=== PATIENT | female | born 1980 | race Caucasian/White ===

== ENCOUNTER 2020-01-11 12:39 | Emergency (ER) | payer OTHER, SELFPAY ==
[2020-01-11] VITALS (17 sets, daily range): BP systolic 99–133; BP diastolic 55–70; PULSE 69–89; RESP 4–20; TEMP 36.6; O2SAT 94–100
--- NOTE | ~2020-01-11 | CT_ITS ---
EXAMINATION: CT BRAIN W/O DATE: 01/11/2020 13:09 INDICATION: Head injury. Nausea, vomiting. Headache. TECHNIQUE: Computed tomography (CT) of the head was performed without intravenous contrast. The dose- length product was 605.33 mGy-cm. COMPARISON: No prior studies for comparison. FINDINGS: Normal brain parenchymal volume for age. Normal henson-white differentiation. No acute intrac ranial hemorrhage, infarction, mass or mass effect. No ventriculomegaly or midline shift. Midline sagittal images demonstrate a normal corpus callosum, c raniovertebral junction and sella turcica. Basilar cisterns are patent. There is mild mucosal thickening of the sphenoid sinus. No depressed skull fracture. IMPRESSION: 1. No acute intracranial abnormality. Reviewed, dictated and finalized at location A.
--- NOTE | 2020-01-11 12:59 | ED.NAVMDI ---
HPI - Nausea/Vomiting/Diarrhea General Chief complaint: Nausea/Vomiting/Diarrhea <Sola Maynard PA-C - Last Filed: 01/11/20 15:20> Stated complaint: n/v/d <RUTH Burch Last Filed: 01/11/20 15:20> Time Seen by Provider: 01/11/20 12:46 <RUTH Burch Last Filed: 01/11/20 15:20> Source: patient <RUTH Burch Last Filed: 01/11/20 15:20> Mode of arrival: ambulatory <RUTH Burch Last Filed: 01/11/20 15:20> Limitations: no limitations <RUTH Burch Last Filed: 01/11/20 15:20> History of Present Illness HPI Narrative: This is a 39 year old female that presents to the ER for N/V/D x 3 days. Reports she had a fall on Monday. Reports she slipped and fell down about 10 steps. She is unsure if she hit her head. Denies loss of consciousness. Reports since she has had intermittent headaches and started vomiting on Monday. Reports over the last couple of days she has had some loose stools as well. Reports some lower abdominal pain. Denies fever, chest pain, shortness of breath, recent antibiotic use, sick contacts, vision changes, numbness or weakness. <RUTH Burch Last Filed: 01/11/20 15:20> Related Data Allergies/Adverse reactions: Allergies Allergy/AdvReac Type Severity Reaction Status Date / Time STEROIDS AdvReac Unknown Uncoded 09/27/16 14:02 <RUTH Burch Last Filed: 01/11/20 15:20> Review of Systems Review of Systems: Narrative: CONSTITUTIONAL: Denies fever EYES: Denies visual changes CARDIOVASCULAR: Denies chest pain RESPIRATORY: Denies dyspnea. GASTROINTESTINAL: Reports abdominal pain, nausea, vomiting, and diarrhea. GENITOURINARY: Denies dysuria or hematuria. MUSCULOSKELETAL: Reports myalgia. Denies back pain, joint pain NEUROLOGIC: Reports headache. Denies numbness, or weakness. <Sola Maynard PA-C - Last Filed: 01/11/20 15:20> All systems reviewed & are unremarkable except as noted in HPI and below <Sola Maynard PA-C - Last Filed: 01/11/20 15:20> PMFSH Past Medical History Medical History: Medical History (Updated 01/11/20 @ 15:20 by Sola Maynard PA-C) History of irritable bowel syndrome <Sola Maynard PA-C - Last Filed: 01/11/20 15:20> Surgical History Surgical History: Surgical History (Updated 01/11/20 @ 13:04 by Sola Maynard PA-C) History of hysterectomy <Sola Maynard PA-C - Last Filed: 01/11/20 15:20> Family History Family History: Family History (Updated 04/08/16 @ 23:21 by DOCTOR UNKNOWN) Mother Patient's mother is in good health Father Patient's father is in good health Sibling Patient's sister is in good health Grandparent Diabetes mellitus <Sola Maynard PA-C - Last Filed: 01/11/20 15:20> Social History Social History: Social History Smoking status: Never smoker Smoking end date: 09/11/04 Alcohol intake: current Gender identity (if verbalized by the patient): Female <Sola Maynard PA-C - Last Filed: 01/11/20 15:20> Exam Narrative: Exam Narrative: GENERAL: Well-appearing, well-nourished, and in no acute distress. HEAD: Normocephalic, atraumatic. EYES: PERRLA and EOMI. ENT: Nares clear, no rhinorrhea or epistaxis. Mucous membranes moist. Oropharynx without tonsillar hypertrophy exudate or other lesions. Bilateral TMs pearly henson non-bulging NECK: Supple. No adenopathy or masses. No midline spinal tenderness CHEST: Clear to auscultation. No respiratory distress. No wheezes rales or rhonchi HEART: Regular rate and rhythm. No murmur heard. Normal peripheral pulses. ABDOMEN: Soft, nondistended, normal active bowel sounds. Mild tenderness to palpation of the epigastrium, without guarding BACK: No midline spinal tenderness EXTREMITIES: Normal range of motion. No edema or obvious deformity. SKIN: Warm, dry, no rash. NEURO: No focal deficits. Alert and oriented x3. Cranial nerves II through XII gross
--- NOTE | 2020-01-11 13:00 | PC.NURSE ---
Pt states she has lower abd pain, AMBROSE, nausea, vomiting,and loose stools x 3 days. Pt is A&Ox4. Pt states she ate fast food but no one else got sick. Pt states 4 days ago she fell down 10 stairs and does not think she hit her head. Pt states she has felt fatigued. Pt abd soft, tender and non distended. Pt BSx4. Pt appears in NAD. Pt has call light in reach
[2020-01-11] MEDS: ONDANSETRON INJ 4 MG/2 ML VIAL IV PUSH (13:12)
[2020-01-11] MEDS: SODIUM CHLORIDE 0.9% IV 1,000 ML 999 ML IV CONT (13:12)
[2020-01-11 13:36] LABS: Basophils Percent Auto 0.2 % (0.2-1.2); Hematocrit 39.4 % (37.0-47.0); Hemoglobin 13.5 g/dL (12.0-15.0); Immature Granulocyte Absolute 0.04 K/mm3 (0.00-0.031); Immature Granulocyte Percent A 0.4 % (0-0.5); Lymphocytes Absolute Auto 0.98 K/mm3 (0.9-3.2); Lymphocytes Percent Auto 10.2 % (18.3-44.2); Mean Corpuscular HGB Conc 34.3 g/dl (32-36); Mean Corpuscular Hemoglobin 30.7 pg (26-34); Mean Corpuscular Volume 89.5 fl (80-100); Mean Platelet Volume 10.6 fl (7.4-10.4); Monocytes Absolute Auto 0.6 K/mm3 (0.1-0.6); Monocytes Percent Auto 5.9 % (2.6-8.5); Neutrophils Percent Auto 83.3 % (45.5-73.1); Platelet Count Result 212 k/mm3 (150-375); Red Cell Distribution Width 11.6 % (11.5-14.5); White Blood Count 9.6 K/mm3 (4.5-10.0)
[2020-01-11 13:49] LABS: Alanine Aminotransferase 24 U/L (4-35); Albumin Level 4.6 g/dL (3.5-5.1); Alkaline Phosphatase 77 U/L (38-126); Aspartate Amino Transferase 26 U/L (14-36); Bilirubin,Total 0.5 mg/dL (0.2-1.3); Blood Urea Nitrogen 17 mg/dL (7-17); Calcium 8.8 mg/dL (8.4-10.2); Carbon Dioxide 22 mmol/L (22-30); Chloride 105 mmol/L (98-107); Estimated CRCL calculation 111 ml/min; Estimated Glomerular Filt Rate > 60; Glucose 100 mg/dL (65-105); Lipase 36 U/L (23-300); Potassium 3.5 mmol/L (3.4-5.0); Sodium 137 mmol/L (137-145)
[2020-01-11] MEDS: KETOROLAC 15 MG/ML VIAL (*BKC) IV PUSH (14:38)
[2020-01-11] MEDS: FAMOTIDINE 20 MG/2 ML VIAL IV PUSH (14:38)
[2020-01-11] MEDS: SODIUM CHLORIDE 0.9% IV 500 ML 999 ML IV CONT (14:40)
[2020-01-11 14:49] LABS: Add Urine Microscopic? YES; Appearance Urine Cloudy (Clear); Bacteria Urine Trace /hpf; Bilirubin Urine Negative (Negative); Blood Urine 1+ (Negative); Color Urine Yellow (Yellow); Glucose Urine UA Negative (Negative); Ketones Urine 2+ mg/dL (Negative); Leukocyte Esterase Ur Negative LEU/UL (Negative); Mucus Urine Heavy /lpf; Nitrate Urine Negative (Negative); Protein Urine 2+ mg/dL (Negative); RBC Urine 0-2 /hpf (0-2); Squamous Epithelial Cell Urine Many /hpf (Few); Urobilinogen Urine Negative mg/dL (<2.0)
[2020-01-11 14:50] LABS: Specific Grav Ur 1.034 (1.001-1.035)
--- NOTE | 2020-01-11 15:11 | PC.NURSE ---
Pt walked to and from bathroom and felt stronger than originally when she walked in her. Pt aware of POC
== END 2020-01-11 15:44 | disposition home or self-care (01) ==
PROVIDERS: Physician Assistant; Emergency Provider General Practice; PCP Family Medicine
DX: K52.9 Noninfective gastroenteritis and colitis, unspecified (principal); S09.90XA Unspecified injury of head, initial encounter; K58.9 Irritable bowel syndrome, unspecified; W10.9XXA Fall (on) (from) unspecified stairs and steps, initial encounter
CPT/HCPCS: 36415; 70450; 80053; 81001; 83690; 85025; 96361; 96365; 96375; 99284; J0131; J1885; J2405; J7030; J7040

== ENCOUNTER 2020-02-04 03:47 | Emergency (ER) | payer OTHER, SELFPAY ==
[2020-02-04 03:51] VITALS: BP 100/73; PULSE 93; RESP 18; TEMP 36.3; O2SAT 100
--- NOTE | 2020-02-04 04:08 | ED.NAVMDI ---
HPI - Nausea/Vomiting/Diarrhea General Chief complaint: Nausea/Vomiting/Diarrhea Stated complaint: dry heaving Time Seen by Provider: 02/04/20 03:51 History of Present Illness HPI Narrative: Dry heaving for the past 12 hours. Started after mowing the lawn. Associated with lower abdominal ain. Additionally she feels short of breath and is having carpal spasms. She has had this happen once before. Work-up at that tie was negative. She has a h/o anxiety, which she admits is likely playing a role. She also has IBS. Related Data Home Medications Medication Instructions Recorded Confirmed citalopram mg 02/04/20 02/04/20 Allergies Allergy/AdvReac Type Severity Reaction Status Date / Time STEROIDS AdvReac Unknown Unknown Uncoded 02/04/20 03:50 Review of Systems Review of Systems: All systems reviewed & are unremarkable except as noted in HPI and below Constitutional: Constitutional: Denies fever(s) Cardiovascular: Cardiovascular: Denies chest pain Respiratory: Respiratory: Reports dyspnea Gastrointestinal: Gastrointestinal: Reports abdominal pain Genitourinary: Genitourinary: Denies hematuria and Denies dysuria [facility] Past Medical History Medical History History of irritable bowel syndrome Surgical History Surgical History History of hysterectomy Family History Family History Mother Patient's mother is in good health Father Patient's father is in good health Sibling Patient's sister is in good health Grandparent Diabetes mellitus Social History Social History Smoking status: Never smoker Smoking end date: 09/11/04 Alcohol intake: current Gender identity (if verbalized by the patient): Female Exam Const: General: healthy appearing and alert Orientation/consciousness: patient oriented x3 Other: Mild distress HENMT: Mouth: Yes dry mucous membranes Resp: Effort & Inspection: normal respiratory effort and tachypneic Cardio: Rate: regular rate Rhythm: regular rhythm GI: GI Palp: Yes Soft to palpation and No Tenderness to palpation present (GI) Skin: General skin exam: normal color Neuro: General: patient oriented x3, moves all extremities and CN's II-XI intact bilaterally Speech: normal speech Extrem: General: normal to inspection Psych: Affect: Anxious affect present Course Vital Signs Vital signs: Vital Signs Temperature 36.3 C L 02/04/20 03:51 Pulse Rate 93 02/04/20 03:51 Respiratory Rate 18 02/04/20 03:51 Blood Pressure 100/73 02/04/20 03:51 Pulse Oximetry 100 02/04/20 03:51 Temperature 36.3 C L 02/04/20 03:51 Pulse Rate 81 02/04/20 06:16 Respiratory Rate 18 02/04/20 06:16 Blood Pressure 101/48 L 02/04/20 06:16 Pulse Oximetry 98 02/04/20 06:16 MDM - Nausea/Vomiting/Diarrhea MDM Narrative Medical decision making narrative: Symptoms quickly resolved with treatment. Blood sugar elevated. Possible stress induced. Improved on recheck. Differential Diagnosis Differential diagnosis: Likely dehydration and other (IBS, Anxiety, cyclic vomiting) Medical Records Attestation: I reviewed the patient's medical records. Lab Data Attestation: I reviewed the patient's lab results. Result diagrams: 02/04/20 04:04 02/04/20 04:04 Labs: Lab Results 02/04/20 02/04/20 02/04/20 Range/Units 04:04 04:04 06:28 WBC 14.0 H (4.5-10.0) K/mm3 RBC 4.64 (4.2-5.4) M/mm3 Hgb 14.3 (12.0-15.0) g/dL Hct 41.6 (37.0-47.0) % MCV 89.7 (80-100) fl MCH 30.8 (26-34) pg MCHC 34.4 (32-36) g/dl RDW 11.9 (11.5-14.5) % Plt Count 295 (150-375) k/mm3 MPV 10.0 (7.4-10.4) fl Immature Gran % (Auto) 0.5 (0-0.5) % Neut % (Auto) 86.7 H (45.5-73.1) % Lymph % (Auto
[2020-02-04 04:10] LABS: Basophils Percent Auto 0.1 % (0.2-1.2); Hematocrit 41.6 % (37.0-47.0); Hemoglobin 14.3 g/dL (12.0-15.0); Immature Granulocyte Absolute 0.07 K/mm3 (0.00-0.031); Immature Granulocyte Percent A 0.5 % (0-0.5); Lymphocytes Absolute Auto 1.23 K/mm3 (0.9-3.2); Lymphocytes Percent Auto 8.8 % (18.3-44.2); Mean Corpuscular HGB Conc 34.4 g/dl (32-36); Mean Corpuscular Hemoglobin 30.8 pg (26-34); Mean Corpuscular Volume 89.7 fl (80-100); Monocytes Absolute Auto 0.6 K/mm3 (0.1-0.6); Monocytes Percent Auto 3.9 % (2.6-8.5); Neutrophils Absolute Auto 12.2 K/mm3 (1.3-6.7); Neutrophils Percent Auto 86.7 % (45.5-73.1); Platelet Count Result 295 k/mm3 (150-375); Red Blood Count 4.64 M/mm3 (4.2-5.4); Red Cell Distribution Width 11.9 % (11.5-14.5)
[2020-02-04] MEDS: METOCLOPRAMIDE HCL INJ 10 MG/2 ML VIAL IV PUSH (04:17)
[2020-02-04] MEDS: SODIUM CHLORIDE 0.9% IV 1,000 ML 999 ML IV CONT (04:17)
[2020-02-04] MEDS: LORAZEPAM INJ 2 MG/ML VIAL 1 MG IV PUSH (04:17)
[2020-02-04] MEDS: HALOPERIDOL LACTATE 5 MG/ML VIAL IV PUSH (04:17)
[2020-02-04 04:23] LABS: Albumin Level 4.7 g/dL (3.5-5.1); Alkaline Phosphatase 96 U/L (38-126); Aspartate Amino Transferase 33 U/L (14-36); Bilirubin,Total 0.5 mg/dL (0.2-1.3); Blood Urea Nitrogen 9 mg/dL (7-17); Calcium 9.5 mg/dL (8.4-10.2); Carbon Dioxide 22 mmol/L (22-30); Chloride 106 mmol/L (98-107); Estimated CRCL calculation 96 ml/min; Estimated Glomerular Filt Rate > 60; Glucose 186 mg/dL (65-105); Lipase 90 U/L (23-300); Potassium 3.9 mmol/L (3.4-5.0); Sodium 139 mmol/L (137-145)
--- NOTE | 2020-02-04 04:28 | PC.NURSE ---
per pt request pt placed on o2 via nc 1.0L
[2020-02-04 04:29] LABS: Alanine Aminotransferase 28 U/L (4-35)
[2020-02-04 04:42] VITALS: BP 98/62; PULSE 72; RESP 16; O2SAT 98
[2020-02-04 05:46] VITALS: BP 98/69; PULSE 68; RESP 16; O2SAT 99
[2020-02-04 06:16] VITALS: BP 101/48; PULSE 81; RESP 18; O2SAT 98
--- NOTE | 2020-02-04 06:21 | PC.NURSE ---
Called lab to add on glucose.
[2020-02-04 06:30] LABS: Glucose Point of Care 138 (65-105)
== END 2020-02-04 07:17 | disposition home or self-care (01) ==
PROVIDERS: Emergency Provider Emergency Medicine; PCP Family Medicine
DX: F41.9 Anxiety disorder, unspecified (principal); R11.2 Nausea with vomiting, unspecified; R73.9 Hyperglycemia, unspecified; K58.9 Irritable bowel syndrome, unspecified
CPT/HCPCS: 36415; 80053; 83690; 85025; 96374; 96375; 99284; J1630; J2060; J2765; J7030

== ENCOUNTER → 2020-05-06 15:23 | Outpatient (CLI) | payer OTHER, SELFPAY ==
--- NOTE | ~2020-05-06 | MM_ITS ---
EXAMINATION: MM screening abad BI w juana HISTORY: Screening TECHNIQUE: Craniocaudal and mediolateral oblique 3-D tomosynthesis images were obtained and synthetic 2-D images were generated. CAD analysis was submitted and interpreted. COMPARISON: No prior mammogram is available for comparison at this institution. BREAST PARENCHYMAL COMPOSITION: The breasts are heterogeneously dense, which may obscure small masses . FINDINGS: There are focal asymmetries in the subareolar location of the left breast on CC view, not c onfirmed on MLO view. No mammographic evidence for malignancy in the right breast. IMPRESSION: 1. Left breast asymmetries seen on CC view only. 2. Additional mammographic views and possible breast ultrasound are recommended. BI-RADS Category 0: Incomplete: Needs additional imaging evaluation. Reviewed, dictated and finalized at location A. IMPRESSION: 1. Left breast asymmetries seen on CC view only. 2. Additional mammographic views and possible breast ultrasound are recommended . BI-RADS Category 0: Incomplete: Needs additional imaging evaluation.
== END ==
PROVIDERS: Visit Provider Obstetrics & Gynecology
DX: Z12.31 Encounter for screening mammogram for malignant neoplasm of breast (principal); R92.8 Other abnormal and inconclusive findings on diagnostic imaging of breast
CPT/HCPCS: 77063; 77067

== ENCOUNTER → 2020-05-19 08:54 | Outpatient (CLI) | payer OTHER, SELFPAY ==
--- NOTE | ~2020-05-19 | MMUS_ITS ---
EXAMINATION: MM diagnostic mammo unilat LT, US breast LT complete HISTORY: Follow-up left breast asymmetries TECHNIQUE: Additional 3-D tomosynthesis images of the left breast were performed and synthetic 2-D im ages were generated. CAD analysis was submitted and interpreted. High resolution left breast ultrasou nd was performed. COMPARISON: 05/06/2020 BREAST PARENCHYMAL COMPOSITION: The breasts are heterogenously dense, which may obscure small masses FINDINGS: MAMMOGRAPHIC FINDINGS: There are no suspicious masses, calcifications or architectural distortion in the left breast to sugg est malignancy. ULTRASOUND: Left breast ultrasound: At 10:00, 5 cm from the nipple, there is a 4 mm cyst. No suspicious masses to suggest malignancy. IMPRESSION: 1. No mammographic or sonographic evidence for breast. 2. Routine yearly screening mammogram and regular clinical breast examination are recommended. BI-RADS Category 2: Benign finding(s). Reviewed, dictated and finalized at location A. IMPRESSION: 1. No mammographic or sonographic evidence for breast. 2. Routine yearly screening mammogram and regular clinical breast examination a re recommended. BI-RADS Category 2: Benign finding(s).
== END ==
PROVIDERS: Visit Provider Obstetrics & Gynecology
DX: R92.8 Other abnormal and inconclusive findings on diagnostic imaging of breast (principal)
CPT/HCPCS: 76641; 77065

== ENCOUNTER 2021-04-28 15:45 | Emergency (ER) | payer OTHER, SELFPAY ==
[2021-04-28 15:49] VITALS: BP 117/51; PULSE 64; RESP 24; TEMP 35; O2SAT 100
[2021-04-28 16:10] LABS: Basophils Percent Auto 0.2 % (0.2-1.2); Hematocrit 40.8 % (37.0-47.0); Hemoglobin 13.7 g/dL (12.0-15.0); Immature Granulocyte Absolute 0.06 K/mm3 (0.00-0.031); Immature Granulocyte Percent A 0.4 % (0-0.5); Lymphocytes Absolute Auto 1.36 K/mm3 (0.9-3.2); Lymphocytes Percent Auto 9.1 % (18.3-44.2); Mean Corpuscular HGB Conc 33.6 g/dl (32-36); Mean Corpuscular Hemoglobin 30.6 pg (26-34); Mean Corpuscular Volume 91.3 fl (80-100); Mean Platelet Volume 10.2 fl (7.4-10.4); Monocytes Absolute Auto 0.8 K/mm3 (0.1-0.6); Monocytes Percent Auto 5.1 % (2.6-8.5); Neutrophils Absolute Auto 12.7 K/mm3 (1.3-6.7); Neutrophils Percent Auto 85.2 % (45.5-73.1); Platelet Count Result 271 k/mm3 (150-375); Red Blood Count 4.47 M/mm3 (4.2-5.4); White Blood Count 14.9 K/mm3 (4.5-10.0)
[2021-04-28 16:42] LABS: Alanine Aminotransferase 30 U/L (4-35); Albumin Level 4.6 g/dL (3.5-5.1); Alkaline Phosphatase 102 U/L (38-126); Anion Gap 9 mmol/L (8-16); Aspartate Amino Transferase 32 U/L (14-36); Bilirubin,Total 0.6 mg/dL (0.2-1.3); Blood Urea Nitrogen 8 mg/dL (7-17); Calcium 9.5 mg/dL (8.4-10.2); Carbon Dioxide 21 mmol/L (22-30); Chloride 108 mmol/L (98-107); Estimated CRCL calculation 99 ml/min; Estimated Glomerular Filt Rate > 60; Glucose 162 mg/dL (65-110); Lipase 69 U/L (23-300); Sodium 138 mmol/L (137-145)
--- NOTE | 2021-04-28 16:46 | PC.NURSE ---
Pt amb to intake desk, pt states she is going to leave I will fell better at home . Pt remains alert & oriented x3 at this time. Pt states she will come back if continues to feel bad. Pt amb out of dept with nl steady gait.
== END 2021-04-29 04:48 | disposition left against medical advice (07) ==
PROVIDERS: Emergency Provider Emergency Medicine
DX: R10.9 Unspecified abdominal pain (principal)
CPT/HCPCS: 36415; 80053; 83690; 85025; 99199

== ENCOUNTER → 2021-05-10 15:02 | Outpatient (CLI) | payer OTHER, SELFPAY ==
--- NOTE | ~2021-05-10 | MM_ITS ---
EXAMINATION: MM screening abad BI w juana HISTORY: Screening TECHNIQUE: Craniocaudal and mediolateral oblique 3-D tomosynthesis images were obtained and synthetic 2-D images were generated. CAD analysis was submitted and interpreted. COMPARISON: 05/06/2020 BREAST PARENCHYMAL COMPOSITION: The breasts are heterogenously dense, which may obscure small masses. FINDINGS: There is no evidence of suspicious mass, calcification, or architectural distortion to sugg est malignancy in either breast. There has been no suspicious interval change. IMPRESSION: 1. No mammographic evidence of malignancy. 2. Recommend routine screening mammography in one year. BI-RADS Category 1: Negative Reviewed, dictated and finalized at location A.
== END ==
PROVIDERS: Visit Provider Obstetrics & Gynecology
DX: Z12.31 Encounter for screening mammogram for malignant neoplasm of breast (principal)
CPT/HCPCS: 77063; 77067

== ENCOUNTER → 2021-06-24 09:37 | Outpatient (CLI) | payer OTHER, SELFPAY ==
--- NOTE | ~2021-06-24 | XR_ITS ---
XR chest 2V DATE: 06/24/2021 10:00 INDICATION: Cough TECHNIQUE: 2 views COMPARISON: None FINDINGS: Normal heart size. No hilar or mediastinal enlargement. The lungs are clear of infiltrate o r consolidation. No pleural effusion or pulmonary vascular congestion or pneumothorax. IMPRESSION: Negative chest Reviewed, dictated and finalized at location B. IMPRESSION: Negative chest
== END ==
PROVIDERS: PCP Family Medicine; Visit Provider Family Medicine
DX: R05.9 Cough, unspecified (principal)
CPT/HCPCS: 71046

== ENCOUNTER 2021-07-20 08:32 | Outpatient (CLI) | payer OTHER, SELFPAY ==
--- NOTE | 2021-07-20 11:30 | NEURO_ITS ---
Impression: # Complains of left hand numbness. # Mild evolving left Carpal Tunnel Syndrome. # No ulnar neuropathy. # Normal needle/EMG exam. Nerve Conduction Studies Anti Sensory Summary Table Stim Site NR Peak (ms) P-T Amp (?V) Site1 Site2 Delta-P (ms) Dist (cm) Vinny (m/s) Left Median Anti Sensory (2-3nd Digit) Wrist 2.5 95.5 Wrist 2-3nd Digit 2.5 14.0 56 Wrist 2.5 72.2 Wrist 2-3nd Digit 2.5 14.0 56 Right Median Anti Sensory (2-3nd Digit) Wrist 2.5 79.5 Wrist 2-3nd Digit 2.5 14.0 56 Wrist 2.5 84.8 Wrist 2-3nd Digit 2.5 14.0 56 Left Radial Anti Sensory (Base 1st Digit) Wrist 2.1 20.9 Wrist Base 1st Digit 2.1 0.0 Right Radial Anti Sensory (Base 1st Digit) Wrist 2.2 27.6 Wrist Base 1st Digit 2.2 0.0 Left Ulnar Anti Sensory (5th Digit) Wrist 2.4 78.7 Wrist 5th Digit 2.4 14.0 58 Right Ulnar Anti Sensory (5th Digit) Wrist 2.2 88.2 Wrist 5th Digit 2.2 14.0 64 Motor Summary Table Stim Site NR Onset (ms) O-P Amp (mV) Site1 Site2 Delta-0 (ms) Dist (cm) Vinny (m/s) Left Median Motor (Abd Poll Brev) Wrist 3.8 3.2 Elbow Wrist 4.3 26.0 60 Elbow 8.1 2.1 Right Median Motor (Abd Poll Brev) Wrist 2.7 7.7 Elbow Wrist 4.3 26.0 60 Elbow 7.0 7.3 Left Ulnar Motor (Abd Dig Minimi) Wrist 2.7 7.4 A Elbow Wrist 4.6 28.0 61 A Elbow 7.3 6.6 Right Ulnar Motor (Abd Dig Minimi) Wrist 2.8 7.1 A Elbow Wrist 4.5 27.0 60 A Elbow 7.3 6.3 F Wave Studies NR F-Lat (ms) L-R F-Lat (ms) Left Median (Mrkrs) (Abd Poll Brev) 26.31 0.53 Right Median (Mrkrs) (Abd Poll Brev) 25.78 0.53 Left Ulnar (Mrkrs) (Abd Dig Min) 27.09 0.41 Right Ulnar (Mrkrs) (Abd Dig Min) 26.68 0.41 EMG Side Muscle Nerve Root Ins Act Fibs Amp Dur Recrt Comment Right 1stDorInt Ulnar C8-T1 Nml Nml Nml Nml Nml Right Ext Indicis Radial (Post Int) C7-8 Nml Nml Nml Nml Nml Right Ext Digitorum Radial (Post Int) C7-8 Nml Nml Nml Nml Nml Right BrachioRad Radial C5-6 Nml Nml Nml Nml Nml Right PronatorTeres Median C6-7 Nml Nml Nml Nml Nml Right Abd Poll Brev Median C8-T1 Nml Nml Nml Nml Nml Left 1stDorInt Ulnar C8-T1 Nml Nml Nml Nml Nml Left Ext Indicis Radial (Post Int) C7-8 Nml Nml Nml Nml Nml Left Ext Digitorum Radial (Post Int) C7-8 Nml Nml Nml Nml Nml Left BrachioRad Radial C5-6 Nml Nml Nml Nml Nml Left PronatorTeres Median C6-7 Nml Nml Nml Nml Nml Left Abd Poll Brev Median C8-T1 Nml Nml Nml Nml Nml Right ABD Dig Min Ulnar C8-T1 Nml Nml Nml Nml Nml Left ABD Dig Min Ulnar C8-T1 Nml Nml Nml Nml Nml MTDD
== END 2021-07-20 08:33 | disposition home or self-care (01) ==
PROVIDERS: PCP Family Medicine; Visit Provider Family Medicine
DX: R20.0 Anesthesia of skin (principal); R20.2 Paresthesia of skin; G56.02 Carpal tunnel syndrome, left upper limb
CPT/HCPCS: 95886; 95911

== ENCOUNTER 2022-01-31 09:00 | Outpatient (RCR) | payer OTHER, SELFPAY ==
--- NOTE | 2022-01-05 15:58 | OTOPEVAL ---
OCCUPATIONAL THERAPY INITIAL EVALUATION REPORT 01/05/22 Thank you for referring Kelsi Parker to [facility]– [place].? The patient is scheduled to be seen for therapy? 1-2x/week for 4 weeks. Please review, sign, date and return this plan of care MINNIE. I agree with and certify that the following plan of care is medically necessary. Referring Physician Date Referring Provider: Bruce Bajwa MD *OT Outpatient Evaluation Start: 01/05/22 14:29 Neurological History Hx Neurological Disorders No Significant History Cardiovascular History Hx Cardiac Disorders No Significant History Respiratory History Hx Respiratory Disorders No Significant History Musculoskeletal History Hx Other Musculoskeletal Disorders Yes: left cubital tunnel release, left 1st dorsal compartment release 11/2021 Endocrine History Hx Endocrine Disorders No Significant History Evaluation Information Problem Diagnosis pain and paresthesias s/p release of left 1st dorsal compartment Onset 11/09/21 Subjective Information Patient reports severe Query Text:As Reported By Patient/ hypersensitivity at the incision Family site of the 1st dorsal compartment. She reports being unable to wear a sleeve that touches this area. She also notes an area of numbness on the dorsum of the hand. She reports being unable to do any sort of heavier lifting - carrying a laundry basket, lifting a ortega, etc. She has progressed to being able to roll picker light items such as a coffee cup. Prior Level of Function Activity Level (Last 3 Months) Occupation Desk job, at a computer all day Hand Dominance Right Activity of Daily Living Ability Independent Cooking Yes Cleaning Yes Laundry Yes Shopping Yes Driving Yes Pain Assessment Timing of Pain Assessment Timing of Pain Assessment Assessment Pain Scale Pain Scale Used Numeric (1 - 10) Self Report Pain Assessment Left Wrist(s) Reported Pain Level 2 Pain Description Soreness Lowest Pain Intensity 2 Greatest Pain Intensity 8 Pain Aggravating Factors Exercise/Activity,Lifting Pain Score Pain Score 2: Self Report Interventions
--- NOTE | 2022-01-31 12:58 | OTOPEVAL ---
OCCUPATIONAL THERAPY RE-EVALUATION REPORT AND D/C SUMMARY 01/31/22 Kelsi participated in 8 outpatient OT sessions for residual left wrist pain and weakness following 1st dorsal compartment release on 11/09/21. Treatment consisted of ROM and strengthening as well as paraffin, ultrasound, and manual therapy techniques. She continues to have a palpable, tender nodule at the incision site and intermittent pains with ADL tasks. She reports that therapy has helped her regain strength and ROM, however she states she cannot live with this pain . Therapeutic intervention appeared to have slightly reduced the amount of sensitivity at the surgical site, but she continues to have flair ups of pain that are not improving. She has reached her maximal benefit with therapy at this time. Plan for her to return to MD for further suggestions. Thank you for referring Kelsi Parker to [facility]. Please review, sign, date and return this plan of care MINNIE. I agree with and certify that the following plan of care is medically necessary. Referring Physician Date Referring Provider: Bruce Bajwa MD Re-Evaluation Information Diagnosis pain and paresthesias s/p release of left 1st dorsal compartment Onset 11/09/21 Subjective Information Patient reports continued Query Text:As Reported By Patient/ hypersensitivity at the Family incision site of the 1st dorsal compartment. She reports improvements with ROM and strength, noting increased ability to lift and carry items with the left hand. She states she continues to have pain with various tasks, such as lifting her dog and some pinching tasks. She has been compliant with all materials. Pain Assessment Timing of Pain Assessment Timing of Pain Assessment Assessment Pain Scale Pain Scale Used Numeric (1 - 10) Self Report Pain Assessment Left Wrist(s) Reported Pain Level 1 Pain Description Dull,Soreness Lowest Pain Intensity 0 Greatest Pain Intensity 8 Pain Score Pain Score 1: Self Report Additional Pain Score Comments She reports pain does reach 0/10 with medication. She tends to consistently be at 1-2/10. She reports twinges of pain with ADLs that reaches 8/10. These numbers have remained the same since the start of care. Overall she is having less pain at rest. Interventions Used Interventions Used By Clinicians Education,Exercise,Paraffin,
== END 2022-01-31 13:29 | disposition home or self-care (01) ==
LOC: ANHOT 09:00
PROVIDERS: PCP Family Medicine; Visit Provider Plastic Surgery
DX: Z48.89 Encounter for other specified surgical aftercare (principal); M79.642 Pain in left hand; R20.2 Paresthesia of skin
CPT/HCPCS: 97018; 97035; 97110; 97140; 97165

== ENCOUNTER 2022-03-02 00:38 | Emergency (ER) | payer OTHER, SELFPAY ==
[2022-03-02 00:40] VITALS: BP 100/56; PULSE 80; RESP 16; TEMP 36.4; O2SAT 97
--- NOTE | 2022-03-02 00:55 | ED.ANIMALBIT ---
HPI - Animal Bite General Chief Complaint: Animal Bite <RUTH Jhaveri Last Filed: 03/02/22 04:05> Stated Complaint: spider bite left leg <RUTH Jhaveri Last Filed: 03/02/22 04:05> Time Seen by Provider: 03/02/22 00:47 <RUTH Jhaveri Last Filed: 03/02/22 04:05> History of Present Illness HPI narrative: 41-year-old female here for evaluation of a lesion on her left buttock that she noted today. Lesion is painless and not itchy, states she only noticed it when she was wiping after using the toilet. She had her look at the lesion and her told her to come to the emergency department. Patient states she has been cleaning out her house and noted many spiders. Denies seeing actual bite. Patient feels well and denies any systemic symptoms. She has not attempted any medication on the lesion. <RUTH Jahveri Last Filed: 03/02/22 04:05> Related Data Home Medications: Home Medications Medication Instructions Recorded Confirmed citalopram 40 mg tablet mg 02/04/20 06/24/21 bupropion HCl 150 mg 24 hr tablet, 150 mg PO QAM 06/24/21 06/24/21 extended release (Wellbutrin XL) <RUTH Jhaveri Last Filed: 03/02/22 04:05> Allergies/Adverse Reactions: Allergies Allergy/AdvReac Type Severity Reaction Status Date / Time STEROIDS AdvReac Unknown Unknown Uncoded 03/02/22 00:43 <RUTH Jhaveri Last Filed: 03/02/22 04:05> Review of Systems Review of Systems: Gen.: Denies fevers or chills Eyes: Denies eye pain or visual change ENT: Denies congestion Respiratory: Denies shortness of breath or cough CV: Denies chest pain or palpitations GI: Denies abdominal pain nausea, emesis or diarrhea denies burning, urgency, frequency or hematuria Musculoskeletal: Denies back pain or muscle pain Neuro: Denies numbness, tingling, weakness or focal weakness Skin: Reports lesion as per HPI Except as documented, all other systems reviewed and negative <Sola Hensley PA-C - Last Filed: 03/02/22 04:05> [facility] Past Medical History Medical History: Medical History Dysfunctional uterine bleeding ALFRED (generalized anxiety disorder) History of irritable bowel syndrome SBO (spina bifida occulta) <Sola Hensley PA-C - Last Filed: 03/02/22 04:05> Surgical History Surgical History: Surgical History History of hysterectomy Hx of dilation and curettage S/P VANE (total abdominal hysterectomy) Tubal ligation status <Sola Hensley PA-C - Last Filed: 03/02/22 04:05> Family History Family History: Family History Mother Patient's mother is in good health Father Patient's father is in good health Sibling Patient's sister is in good health Grandparent Diabetes mellitus <Sola Hensley PA-C - Last Filed: 03/02/22 04:05> Social History Social History: Social History (Updated 06/24/21 @ 08:49 by Verena Woodson) Social History: Smoking status: Former smoker Tobacco type: cigarettes Second hand tobacco smoke exposure: No Smoking end date: 09/11/04 Alcohol intake: current Alcohol use details: Rarely Substance use: never Substance use type: does not use Gender identity (if verbalized by the patient): Female Sexual Orientation (if Verbalized by the Patient): Straight or Heterosexual <Sola Hensley PA-C - Last Filed: 03/02/22 04:05> Exam Narrative: Gen: Alert, oriented, no acute distress Eyes: EOMI, no icterus Pulm: Respirations even and unlabored, symmetric thorax expansion, no audible stridor or visible cyanosis CV: Regular rate per telemetry GI: No distension, no voluntary/involuntary guarding Neuro: AOx4, moves all extremities without ap
== END 2022-03-02 01:13 | disposition home or self-care (01) ==
LOC: ANHED 01:02
PROVIDERS: Emergency Provider Emergency Medicine; PCP Family Medicine
DX: R21 Rash and other nonspecific skin eruption (principal); K58.9 Irritable bowel syndrome, unspecified; Q76.0 Spina bifida occulta; F41.1 Generalized anxiety disorder; Z90.710 Acquired absence of both cervix and uterus; Z87.891 Personal history of nicotine dependence
CPT/HCPCS: 99281

== ENCOUNTER → 2022-08-24 15:19 | Outpatient (CLI) | payer OTHER, SELFPAY ==
--- NOTE | ~2022-08-24 | MM_ITS ---
EXAMINATION: MM screening abad BI w juana HISTORY: Screening TECHNIQUE: Craniocaudal and mediolateral oblique 3-D tomosynthesis images were obtained and synthetic 2-D images were generated. CAD analysis was submitted and interpreted. COMPARISON: Comparison to multiple prior studies sequentially, with oldest reviewed study dated 05/06. BREAST PARENCHYMAL COMPOSITION: The breasts are heterogeneously dense, which may obscure small masses . FINDINGS: There is no evidence of suspicious mass, calcification, or architectural distortion to sugg est malignancy in either breast. There has been no suspicious interval change. IMPRESSION: 1. No mammographic evidence of malignancy. 2. Recommend routine screening mammography in one year. BI-RADS Category 1: Negative Reviewed, dictated and finalized at location B. ETING TECHNOLOGIST
== END ==
PROVIDERS: PCP Family Medicine; Visit Provider Obstetrics & Gynecology
DX: Z12.31 Encounter for screening mammogram for malignant neoplasm of breast (principal)
CPT/HCPCS: 77063; 77067

== ENCOUNTER → 2023-10-06 16:05 | Outpatient (CLI) | payer OTHER, SELFPAY ==
--- NOTE | ~2023-10-06 | MM_ITS ---
EXAMINATION: MM screening abad BI w juana HISTORY: Screening TECHNIQUE: Craniocaudal and mediolateral oblique 3-D tomosynthesis images were obtained and synthetic 2-D images were generated. CAD analysis was submitted and interpreted. COMPARISON: Comparison to multiple prior studies sequentially, with oldest reviewed study dated 05/06. BREAST PARENCHYMAL COMPOSITION: The breasts are heterogeneously dense, which may obscure small masses FINDINGS: There is no evidence of suspicious mass, calcification, or architectural distortion to sugg est malignancy in either breast. There has been no suspicious interval change. IMPRESSION: 1. No mammographic evidence of malignancy. 2. Recommend routine screening mammography in one year. BI-RADS Category 1: Negative Reviewed, dictated and finalized at location A. H MANAGER
== END ==
PROVIDERS: PCP Obstetrics & Gynecology; Visit Provider Obstetrics & Gynecology
DX: Z12.31 Encounter for screening mammogram for malignant neoplasm of breast (principal)
CPT/HCPCS: 77063; 77067

== ENCOUNTER 2023-11-15 07:34 | Day surgery (SDC) | payer OTHER, SELFPAY ==
[2023-10-23 11:28] VITALS: BMI 25.7
[2023-10-30 10:42] VITALS: BMI 23.6
[2023-11-15 08:51] VITALS: BMI 25.2
--- NOTE | 2023-11-15 09:02 | PM.HPGS ---
History of Present Illness History of Present Illness Consent: Risks, benefits, and alternatives have been discussed and questions answered. Patient agrees to proceed with procedure. Chief complaint: Change in bowel habit Narrative: Kelsi Parker is a 43 year old female presents for screening colonoscopy. Patient reports a change in bowel habit. Currently complains of constipation. She was told this may be irritable bowel syndrome. She complains of occasional nausea and hard stools. She takes most specific medications at present. She has tried many laxatives in the past. She reports a many years ago had a colonoscopy by Dr. Su. The results of this are unavailable. Review of Systems Review of Systems: Review of systems noncontributory. COUNTS INCLUDE 234 BEDS AT THE [facility] Past Medical History Medical History Dysfunctional uterine bleeding ALFRED (generalized anxiety disorder) History of irritable bowel syndrome SBO (spina bifida occulta) Surgical History Surgical History History of hysterectomy Hx of dilation and curettage S/P VANE (total abdominal hysterectomy) Tubal ligation status Family History Family History Mother Patient's mother is in good health Father Patient's father is in good health Sibling Patient's sister is in good health Grandparent Diabetes mellitus Social History Social History (Updated 06/24/21 @ 08:49 by Verena Woodson) Social History: Smoking status: Never smoker Tobacco type: cigarettes Second hand tobacco smoke exposure: No Smoking end date: 09/11/04 Alcohol intake: current Alcohol use details: Rarely Substance use: never Substance use type: does not use Living arrangements: with family Occupation/Education: occupation Gender identity (if verbalized by the patient): Female Sexual Orientation (if Verbalized by the Patient): Straight or Heterosexual Spiritual care concerns: No Meds Home Medications and Allergies Home Medications Medication Instructions Recorded Confirmed Type citalopram 40 mg tablet 40 mg PO DAILY 02/04/20 11/15/23 History bupropion HCl 150 mg 24 hr tablet, 150 mg PO QAM 06/24/21 11/15/23 History extended release (Wellbutrin XL) citalopram 10 mg tablet 10 mg PO HS 10/30/23 11/15/23 History Allergies Allergy/AdvReac Type Severity Reaction Status Date / Time STEROIDS AdvReac Unknown Joint Pain Uncoded 11/15/23 08:44 Exam Narrative: Physical exam reveals patient to be alert. Vital signs stable. HEENT exam is unremarkable. Patient is anicteric. Lungs are clear to auscultation and percussion. Heart is without murmur or extra sounds. Abdomen bowel sounds are present soft nontender with no organomegaly. Digital external rectal exam normal. Assessment and Plan Assessment and plan (1) Change in bowel habit: Code(s): R19.4 - Change in bowel habit Status: Acute Assessment and Plan: Patient reports a change in bowel habit. Previously suspected to have irritable bowel syndrome. I would advise daily use of Metamucil supplement with MiraLax 17g p.o. daily if needed. She is once or twice a week. Patient SP today. This report follows separately. (2) Constipation: Qualifiers: Constipation type: slow transit constipation Qualified Code(s): K59.01 - Slow transit constipation Code(s): K59.00 - Constipation, unspecified Status: Acute
[2023-11-15 09:13] VITALS: BP 109/59; PULSE 64; RESP 16; TEMP 36.7; O2SAT 99
[2023-11-15] MEDS: LACTATED RINGERS 1,000 ML 150 ML IV CONT (09:14)
--- NOTE | 2023-11-15 09:45 | WPDANESEPPF ---
Anes - Initial Pre Proc Eval Procedure: Operation Date: 11/15/23 10:00 Proposed Procedures p Diagnostic Colonoscopy - All Pearson MD Date/Time: 11/15/23 09:45 Surgeon: All Pearson MD Pre Op Diagnosis: Change in bowel habit Patient Data Age: 43 Gender: F Height: 1.75 m Weight: 77.6 kg Last Vital Signs Temp 36.7 C 11/15/23 09:13 Pulse 64 11/15/23 09:13 Resp 16 11/15/23 09:13 BP 109/59 L 11/15/23 09:13 Pulse Ox 99 11/15/23 09:13 O2 Del Method Room Air 11/15/23 09:13 Allergies Allergy/AdvReac Type Severity Reaction Status Date / Time STEROIDS AdvReac Unknown Joint Pain Uncoded 11/15/23 08:44 Home Medications Medication Instructions Recorded Confirmed Type citalopram 40 mg tablet 40 mg PO DAILY 02/04/20 11/15/23 History bupropion HCl 150 mg 24 hr tablet, 150 mg PO QAM 06/24/21 11/15/23 History extended release (Wellbutrin XL) citalopram 10 mg tablet 10 mg PO HS 10/30/23 11/15/23 History Patient hx anesthesia problems: none Family hx anesthesia problems: none Results Review: All pre-operative results and documents have been reviewed as part of the pre-operative evaluation. [facility] Past Medical History Medical History Dysfunctional uterine bleeding ALFRED (generalized anxiety disorder) History of irritable bowel syndrome SBO (spina bifida occulta) Surgical History Surgical History History of hysterectomy Hx of dilation and curettage S/P VANE (total abdominal hysterectomy) Tubal ligation status Family History Family History Mother Patient's mother is in good health Father Patient's father is in good health Sibling Patient's sister is in good health Grandparent Diabetes mellitus Social History Social History Social History: Smoking status: Never smoker Tobacco type: cigarettes Second hand tobacco smoke exposure: No Smoking end date: 09/11/04 Alcohol intake: current Alcohol use details: Rarely Substance use: never Substance use type: does not use Living arrangements: with family Occupation/Education: occupation Gender identity (if verbalized by the patient): Female Sexual Orientation (if Verbalized by the Patient): Straight or Heterosexual Spiritual care concerns: No Anes - Eval Final PreProcedure Day of Procedure 11/15/23 09:45 Patient weight: normal Heart: regular rate and rhythm Lungs: clear to auscultation Airway: Mallampati scale class II Neurological: alert and oriented Last oral intake: >/= 8 hours ASA classification: II Emergent: no Anesthetic plan: proceed Anesthesia type and monitoring: general GIVS and standard monitoring Results Review: All pre-operative results and documents have been reviewed as part of the pre-operative evaluation. Informed Consent: The patient's anesthetic plan and its attendant risks and benefits were discussed with the patient/family/POA. Questions were solicited and answers provided to the satisfaction of the patient/family/POA.
[2023-11-15 10:36] VITALS: BP 99/49; PULSE 70; RESP 16; O2SAT 100
--- NOTE | 2023-11-15 10:44 | WPDANESPN ---
Anes - Prog Note Post-Op Date/Time: 11/15/23 10:44 Cardiovascular status: normal Respiratory status: normal Airway patency: baseline Mental status: baseline Post-Op hydration status: normal Vital Signs: Last Vital Signs Temp 36.7 C 11/15/23 09:13 Pulse 70 11/15/23 10:36 Resp 16 11/15/23 10:36 BP 99/49 L 11/15/23 10:36 Pulse Ox 100 11/15/23 10:36 O2 Del Method Room Air 11/15/23 10:36 Pain Score (VAS): 0/10 I/O: Intake & Output 11/14/23 11/15/23 11/15/23 23:59 07:59 15:59 Intake Total 550 Balance 550 Patient Feedback: Patient satisfied with anesthetic care.
[2023-11-15 10:46] VITALS: BP 100/55; PULSE 67; RESP 16; O2SAT 100
[2023-11-15 10:56] VITALS: BP 103/53; PULSE 62; RESP 18; O2SAT 100
== END 2023-11-15 11:15 | disposition home or self-care (01) ==
PROVIDERS: PCP Family Medicine; Visit Provider Internal Medicine Gastroenterology
PROC: 0DJD8ZZ Inspection of Lower Intestinal Tract, Via Natural or Artificial Opening Endoscopic (ICD-10-PCS; CPT 45378; principal; 2023-11-15 10:00)
DX: R19.4 Change in bowel habit (principal); K59.00 Constipation, unspecified; K64.8 Other hemorrhoids
CPT/HCPCS: 45378

== ENCOUNTER 2024-10-08 15:54 | Outpatient (CLI) | payer OTHER, SELFPAY ==
--- NOTE | ~2024-10-08 | MM_ITS ---
EXAMINATION: MM screening abad BI w juana HISTORY: Screening TECHNIQUE: Craniocaudal and mediolateral oblique 3-D tomosynthesis images were obtained and synthetic 2-D images were generated. CAD analysis was submitted and interpreted. COMPARISON: Comparison to multiple prior studies sequentially, with oldest reviewed study dated 05/06. BREAST PARENCHYMAL COMPOSITION: Dense: The breasts are heterogeneously dense, which may obscure small masses FINDINGS: There is no evidence of suspicious mass, calcification, or architectural distortion to sugg est malignancy in either breast. There has been no suspicious interval change. IMPRESSION: 1. No mammographic evidence of malignancy. 2. Recommend routine screening mammography in one year. BI-RADS Category 1: Negative Reviewed, dictated and finalized at location A. OSITION WEATHERBOARD APPLIER
== END 2024-10-08 15:55 | disposition home or self-care (01) ==
LOC: MICIMG 15:56
PROVIDERS: PCP Obstetrics & Gynecology; Visit Provider Obstetrics & Gynecology
DX: Z12.31 Encounter for screening mammogram for malignant neoplasm of breast (principal)
CPT/HCPCS: 77063; 77067

== ENCOUNTER 2025-05-21 16:33 | Outpatient (CLI) | payer OTHER, SELFPAY ==
--- NOTE | ~2025-05-21 | XR_ITS ---
XR lumbar spine 2-3V Indication: LT SIDED LBP THAT RADIATES INTO LEFT LEG;NUMBNESS TINGLING Comparison: None Findings: The vertebral heights are intact. No fracture or subluxation. The disc heights are intact. Soft tissues unremarkable Impression: No acute abnormality. Reviewed, dictated and finalized at location A. Impression: No acute abnormality.
== END 2025-05-21 16:34 | disposition home or self-care (01) ==
LOC: MICIMG 16:34
PROVIDERS: PCP Family Medicine; Visit Provider Student in an Organized Health Care Education/Training Program
DX: M54.50 Low back pain, unspecified (principal)
CPT/HCPCS: 72100

== ENCOUNTER 2025-09-03 08:17 | Outpatient (CLI) | payer OTHER, SELFPAY ==
--- NOTE | ~2025-09-03 | MR_ITS ---
EXAMINATION: MR lumbar spine wo con DATE: 09/03/2025 08:58 INDICATION: Lumbar radiculopathy. Low back pain. Bilateral leg numbness and tingling. TECHNIQUE: Magnetic resonance imaging (MRI) of the lumbar spine was performed without intravenous contrast. COMPARISON: Lumbar spine radiographs 05/21/2025 FINDINGS: There is 6 degrees dextrocurvature of thoracic lumbar spine. Vertebral body heights are normal. There is a chronic right L5 pars defect. There is mildly decreased disc height at L4-L5. The distal spinal cord signal intensity is normal. The conus medullaris is at T12. The following disc levels are specifically discussed: L1-L2: There is a central protrusion. There is moderate bilateral facet joint osteoarthritis. There is no neural foraminal stenosis. There is mild central canal stenosis. L2-L3: There is a central protrusion. There is moderate bilateral facet joint osteoarthritis. There is no neural foraminal stenosis. There is mild central canal stenosis. L3-L4: There is a central protrusion. There is mild bilateral facet joint osteoarthritis. There is no neural foraminal stenosis. There is mild central canal stenosis. L4-L5: The disc is bulging and has an annular fissure. There is moderate bilateral facet joint osteoarthritis. There is mild bilateral neural foraminal stenosis. There is mild central canal stenosis. L5-S1: The disc is bulging. There is mild right and moderate left facet joint osteoarthritis. There is mild bilateral neural foraminal stenosis. There is mild central canal stenosis. IMPRESSION: 1. Mild lumbar spondylosis. 2. Chronic right L5 pars defect. Reviewed, dictated and finalized at location E. FACTURER
== END 2025-09-03 08:18 | disposition home or self-care (01) ==
LOC: MICIMG 08:18
PROVIDERS: PCP Family Medicine; Visit Provider Physician Assistant
DX: M47.26 Other spondylosis with radiculopathy, lumbar region (principal)
CPT/HCPCS: 72148